=== PATIENT | male | born 1990 | race Caucasian/White ===

== ENCOUNTER 2016-07-03 16:41 | Emergency (ER) | payer OTHER ==
[~2016-07-03] VITALS: Ht 167.6 cm; Wt 90.7 kg
[~2016-07-03 16:41] MED LIST: FLEXERIL10 M1 PO; MOTRIN400 M1 PO
[2016-07-03 17:02] VITALS: BP 146/89
--- NOTE | 2016-07-03 17:12 | NUR ---
PT HERE FOR COUGH AND CONGESTION X2 WEEKS WITH FVERS X 1WEEK, WORSENING IN THE LAST TWO DAYS. REPORTS WHITE PHLEGM, REPORTS NAUSEA, NO V OR D. RESP EVEN AND UNALBORED, ON RA@98%. LS-CLEAR, DIMINSIHED TO RLL.
[2016-07-03] MEDS ORDERED: cefTRIAXone 1,000 MG in LIDOCAINE 1% ED 2.1 ML IM ONE (17:20)
[2016-07-03] MEDS ORDERED: DEXAMETHASONE 10 MG/ML VIAL IM ONE (17:20)
[2016-07-03] MEDS ORDERED: IBUPROFEN 800 MG TAB PO ONE (17:20)
--- NOTE | 2016-07-03 17:45 | NUR ---
MEDICATED, WILL HOLD AND OBSERVE FOR POSS ADVERSE REACTIONS
[2016-07-03 18:03] VITALS: BP 135/75
--- NOTE | 2016-07-03 18:03 | NUR ---
Patient discharged with v/s stable. Written and verbal after care instructions given and explained. Patient alert, oriented and verbalized understanding of instructions. Ambulatory with steady gait. All questions addressed prior to discharge. ID band removed. Patient advised to follow up with PMD. Rx of Z-PACK,MOTRIN, ALBUTEROL, MOM given. Patient educated on indication of medication including possible reaction and side effects. Opportunity to ask questions provided and answered.
== END 2016-07-03 18:03 | disposition home or self-care (01) ==
LOC: MED 16:41
DX: J02.9 Acute pharyngitis, unspecified (principal); J45.901 Unspecified asthma with (acute) exacerbation
CPT/HCPCS: 96372; 99284; J0696; J1100; J2001